=== PATIENT | female | born 1985 | race Caucasian/White ===

== ENCOUNTER 2019-10-26 09:32 | Outpatient (CLI) | payer SELFPAY ==
--- NOTE | 2019-10-26 09:38 | US_ITS ---
WS: [id number] OB ultrasound, 10/26/2019 Clinical Data: ANATOMY CHECK/2ND TRIMESTER NORMAL Comparison: None. Findings: There is a single intrauterine in an oblique lie. The placenta is posterior and fundal and grade 0. There is a normal amount of amnionic fluid. The heart rate is 141 beats per minute. Measurements of growth and development: BPD: 4.8 cm HC: 18.3 cm AC: 15.4 cm FL: 3.4 cm The estimated weight is 369 or approximately 13 ounces. The estimated gestational age is 20w5d with an KATHIE of approximately 03/09/2020. anatomy show a normal stomach, kidneys, bladder, cord insertion, three-vessel cord, entire spin e, four-chamber heart, lateral cerebral ventricles, cerebellum and cisterna magna. US/US OB >= 14 weeks fetus [id number] Impression: 1. Single intrauterine in an oblique lie. 2. Estimated gestational age 20w5d with an KATHIE of 03/09/2020. 3. heart rate 141 beats per minute.
== END 2019-10-26 09:33 | disposition home or self-care (01) ==
LOC: RAD 09:34
PROVIDERS: Family Provider Family Medicine; PCP Family Medicine; Visit Provider Family Medicine
DX: Z34.82 Encounter for supervision of other normal pregnancy, second trimester (principal); Z36.9 Encounter for antenatal screening, unspecified; Z3A.20 20 weeks gestation of pregnancy
CPT/HCPCS: 76805

== ENCOUNTER 2020-03-05 19:49 | Outpatient (CLI) | payer SELFPAY ==
[2020-03-05 20:08] VITALS: BP 147/72; PULSE 73
[2020-03-05 20:10] VITALS: BMI 26.3
[2020-03-05 20:18] VITALS: BP 0/0
[2020-03-05 20:20] VITALS: BP 146/71; PULSE 77
[2020-03-05 20:41] VITALS: BP 133/59; PULSE 66; TEMP 37.1
[2020-03-05 20:54] LABS: Nitrazine Paper, PH Inconclusive
[2020-03-05 20:58] LABS: Actim Prom Negative
[2020-03-05 21:01] VITALS: BP 138/62; PULSE 71
[2020-03-05 21:20] VITALS: BP 0/0
== END 2020-03-05 21:30 | disposition home or self-care (01) ==
LOC: OPOB 19:50 → OBGYN 21:25
PROVIDERS: PCP Family Medicine; Visit Provider Family Medicine
DX: O26.899 Other specified pregnancy related conditions, unspecified trimester (principal); Z3A.00 Weeks of gestation of pregnancy not specified; N89.8 Other specified noninflammatory disorders of vagina
CPT/HCPCS: 83986; 84112; 99211

== ENCOUNTER 2020-03-16 00:55 | Inpatient (IN) | payer SELFPAY ==
[2020-03-16] VITALS (13 sets, daily range): BP systolic 108–144; BP diastolic 52–80; PULSE 66–100; RESP 16–18; TEMP 36.7–36.9; O2SAT 96; BMI 25.3
--- NOTE | 2020-03-16 01:30 | PC.NURSE ---
Dr. Stephenson at bedside
[2020-03-16 01:34] LABS: Basophils % 0.2 %; Eosinophils # 0.1 10^3/uL (0.0-0.8); Eosinophils % 0.7 %; Hemoglobin 12.5 g/dL (11.5-15.3); Lymphocytes % 15.8 %; Mean Corpuscular HGB Conc 33.8 g/dL (30.0-36.0); Mean Corpuscular Hemoglobin 29.1 pg (28.0-34.0); Mean Corpuscular Volume 86.2 fL (81-99); Mean Platelet Volume 11.8 fL (7.4-10.4); Monocytes # 0.6 10^3/uL (0.2-0.9); Monocytes % 4.8 %; Neutrophils # 9.6 10^3/uL (1.8-7.7); Nucleated Red Blood Cells % 0 %; Platelet Count 199 10^3/cmm (130-400); Red Blood Count 4.29 10^6/uL (4.1-5.3); Red Cell Distribution Width 12.9 % (12.1-15.1); White Blood Count 12.4 10^3/uL (4.0-10.0)
--- NOTE | 2020-03-16 01:40 | P.HP_ITS ---
Providers/Chief Complaint Primary Care Provider: Jean Soot MD Chief Complaint: CONTRACTIONS HPI PHYSICAL ANTHROPOLOGIST History of Present Illness Meghan Cowart is a 35 year old 6 para 4-0-1-4 with an EDC of 03/12/2020 as determined by sure last menstrual period of 06/06/2019 and confirmed by ultrasound. She presents at 40-4/7 weeks gestation with onset of contractions on 03/14/2020 in the evening. They have increased in frequency and intensity all throughout the day yesterday and then she proceeded to the labor room this morning. She reports no leakage of fluid and no bleeding. care began in September at 15 weeks gestation and has been complicated by advanced maternal age and anemia which has been resolved with dietary supplementation. She has had her membranes swept in the office both 03/07/2020 and 03/14/2020. Present Details : 6 Para: 4 Date of Last Menstrual Period: 06/06/19 Calculated Date of Delivery: 03/12/20 Gestational Age Based on Last Menstrual Period: 40 Dating criteria OB: LMP confirmed by 2nd trimester US care: good care Ultrasounds: normal mid trimester US Obstetrical complications: other (Advanced maternal age) Medical complications OB: other (Anemia, rubella nonimmune status) Labs Blood type OB HPI: 0 (-) negative Rubella: Non-Immune RPR: Negative GBS: Negative HBsAG: Negative Other Lab Information: INITIAL LABS: Blood Type: O- D (Rh) Type: Negative Antibody Screen: Negative HCT/HB.7/39.1 Pap Test: Normal, high risk HPV negative Rubella: Nonimmune VDRL: Nonreactive Urine Culture/Screen: Negative HBsAg: Negative HIV Counseling/Testing: Negative Chlamydia: Declined GC: Declined MSAFP/Multiple Markers: Declined 24-30 WEEK LABS: HCT/HGB: 11.7 Diabetes Screen: 57 Tdap: Declined Group B Strep (35-37 weeks): Negative Review of Systems Const: Denies: fever(s) : Denies: vaginal bleeding or vaginal discharge Medications/Allergies Home Medications Medication Instructions Recorded Confirmed Last Taken Type [id number] acid 1 tab PO DAILY 03/16/20 03/16/20 03/15/20 History [ Multi] 0800 Allergies Allergy/AdvReac Type Severity Reaction Status Date / Time amoxicillin Allergy ALGY-Rash Verified 03/05/20 20:54 PFSH PHYSICAL ANTHROPOLOGIST 2 PFSH: Medical History (Updated 03/17/20 @ 09:00 by Mayda Stephenson MD) S/P ORIF (open reduction internal fixation) fracture left elbow/olecranon process Family History (Updated 03/16/20 @ 01:48 by Mayda Stephenson MD) Grandmother Cancer Breast Social History (Updated 03/16/20 @ 02:09 by Mayda Stephenson MD) Smoking and tobacco status: former smoker Second hand smoke exposure: No Alcohol intake: never Substance/Drug Use: never Adopted: No Caregiver/support person: Yes Lives independently: Yes Household members: spouse and children Marital status: Number of children: 4 Number of grandchildren: 0 Highest education level completed: Bachelor's Degree Other Female Reproductive History: Hx Age of Menarche: 12 Duration of menses: 3-5 days Date of Last Menstrual Period: 06/06/19 Cycle Length: 28 days Menstrual flow: normal/abnormal: normal Sexual History: Are you sexually active?: Yes Hx Sexually Transmitted Diseases: No Have you ever tested positive for HIV?: No History History History 6 Term 4 Miscarriages/Ectopic 1 0 Living Children 4 Past Pregnancies Del. Date GA/Weeks Outcome Route Wt Inf Gender Labor Lgth Comp. Anesth esia Location 08/20/99 7 spontaneous 05/11/10 39 live - full term Vaginal 6 lb 10 oz Male [facility] 06/24/12 39 live - full term Vaginal 6 lb 10 oz Male [facility] 06/29/14 40 live - full term Vaginal 7 lb 6 oz Female [facility] 04/27/17 40 live - full term Vaginal 7 lb 2 oz [facility] Delivery Date: 08/20/99 No complications Seema,Mayda Delivery Date: 05/11/10 No complications Seema,Mayda Delivery Date: 06/24/12 No complications Seema,Mayda Delivery Date: 06/29/14 No complications Seema,Mayda Delivery Date: 04/27/17 No complications Seema,Mayda Care KATHIE Calculator Estimated Delivery Date Method Current WG Current Estimate 03/12/20 LMP (Certain) 40w 5d Expected Delivery Route/Plan Vaginal/spontaneous labor Vitals/I&O/Wt Last Vital Signs Pulse 83 03/16/20 00:33 BP 135/75 03/16/20 00:33 Weight last 48 hrs Weight 5.538 oz Weight 157 lb Physical Exam Narrative: EXAM NARRATIVE: heart tones are category 1 with a normal baseline, moderate variability, many accelerations and no decelerations. Contractions are every 3 minutes and of moderate intensity. For complete physical examination please refer to her record. Const: COMMON NORMALS: no acute distress, patient oriented x3, no limitations, healthy appearing, alert and well nourished : MANUAL OB EXAM: dilated 5 cm, effaced (95%), station -2 and other (Vertex) AMNIOTIC FLUID: no fluid Psych: COMMON NORMALS: mental status grossly normal, Normal thought process present, cooperative, normal affect, speech normal and activity/motor behavior normal INSIGHT: Good insight present (Psych) JUDGEMENT: Good judgement present (Psych) Data : 03/16/20 18:25 A&P Assessment and plan (1) Spontaneous onset of labor: Patient is doing well and declines need for pain medication at this time. Status: Resolved (2) 40 weeks gestation of : Status: Resolved (3) Advanced maternal age in : She is declined genetic/aneuploidy testing Status: Resolved (4) Anemia affecting , antepartum: This is been treated with dietary supplementation Status: Resolved (5) Rubella non-immune status, antepartum: Patient is aware Status: Acute (6) Rh negative status during : Patient received RhoGam during the late second trimester of her Status: Acute Qualifiers: Trimester: third trimester Qualified Code(s): O26.893 - Other specified related conditions, third trimester; Z67.91 - Unspecified blood type, Rh negative Attestations Medical Necessity Statement*: As patient is spontaneously laboring she requires inpatient hospitalization. Time Spent in Patient Care: Greater than 35 minutes Coding Level of Care Code Acute Slag Worker for bryan Fwd Exam Expanded Problem Focused Diagnoses Spontaneous onset of labor 40 weeks gestation of Z3A.40 Advanced maternal age in Anemia affecting , antepartum O99.019 Rubella non-immune status, antepartum O99.89; Z28.3 Rh negative status during O26.893; Z67.91 Trimester: third trimester
--- NOTE | 2020-03-16 05:50 | PC.NURSE ---
5477 THIS COACH CLEANER TOOK OVER PATIENT CARE AND WENT IN AND ASK PATIENT AND IF I COULD PUT HER ON MONITOR FOR JUST A FEW MINUTES TO SEE WHAT BABY'S HEART BEAT WAS DOING WITH CONTRACTIONS, TOLD THEM THAT I WANTED TO LEAVE BABY ON WITH A CONTRACTION AND AFTER ITS OVER TO SEE IF BABY WAS OK, THEY AGREED AND WITH CONTRACTION HEART BEAT DROPPED INTO THE 60'S. THIS COACH CLEANER EXPLAINED THAT WAS NOT A GOOD THING AND ASKED IF THEY WERE GOOD WITH ME LEAVE MONITORS ON AND JUST TURNING VOLUME DOWN AND THEY WERE. THIS COACH CLEANER DID VE AND FELT THAT SHE WAS JUST 8CM. LIGHTS TURNED OFF AND TOLD THEM TO CALL IF THEY NEEDED ANYTHING.
--- NOTE | 2020-03-16 06:40 | P.PCNOB_ITS ---
Delivery Note: Date of delivery: March 16, 2020 Pre-Delivery Course: Patient arrived in the analog circuit designer hours monica with increasing frequency and intensity since the evening of 03/14/2020. When she initially arrived in the OB department she was 5 cm dilated 95% effaced and -2 station and monica regularly. She gradually dilated throughout the analog circuit designer hours and experienced spontaneous rupture of membranes at 5:15 AM. This was productive of a moderate amount of clear fluid. She was then found to be completely dilated at 6:10 AM. Throughout her labor she requested minimal intervention which included electronic monitoring. She also declined any type of pain medication. Delivery: After a 9-minute active portion of the second stage of labor she delivered a viable male at 6:19 AM. Head was straight OA. There was no nuchal cord. Bulb suctioning was done upon delivery of baby's head and of baby's body. Baby was placed on maternal abdomen with maternal effort, and the cord was clamped by myself after a delay of about 60 seconds. Cord was cut by father the baby, and cord blood was obtained. Gentle traction was placed on the cord and intravenous Pitocin was given in routine doses. The placenta delivered uneventfully at 6:27 AM and appeared to be intact and mature. Perineum and cervix were inspected and were found to be intact. Post-Delivery Status: Estimated blood loss 100 mL. Mother and baby are stable. Baby had Apgars of 9 at 1 minute and 9 at 5 minutes and weighed 6 pounds 10 ounces and was 21-1/2 inches in length. A&P Assessment and plan (1) Spontaneous onset of labor: Status: Acute (2) 40 weeks gestation of : Status: Acute (3) Advanced maternal age in : Status: Acute (4) Anemia affecting , antepartum: Status: Acute (5) Rubella non-immune status, antepartum: Status: Acute (6) Rh negative status during : Cord blood was obtained for cord blood profile to determine need for RhoGam Status: Acute Qualifiers: Trimester: third trimester Qualified Code(s): O26.893 - Other specified related conditions, third trimester; Z67.91 - Unspecified blood type, Rh negative (7) (normal spontaneous vaginal delivery): Routine orders Status: Acute (8) Intact perineum: Status: Acute Coding Level of Care Code Acute Air Support Operations Operator for Chg Fwd Diagnoses Spontaneous onset of labor 40 weeks gestation of Z3A.40 Advanced maternal age in Anemia affecting , antepartum O99.019 Rubella non-immune status, antepartum O99.89; Z28.3 Rh negative status during O26.893; Z67.91 Trimester: third trimester (normal spontaneous vaginal delivery) O80 Intact perineum
[2020-03-16] MEDS: lanolin oint 7 gm 1 APPLIC TOPICAL (09:09)
[2020-03-16] MEDS: prenatal vitamin Capsule 1 CAP PO (09:09)
[2020-03-16] MEDS: docusate sodium 100 mg Capsule PO (09:10)
--- NOTE | 2020-03-16 10:58 | PC.NURSE ---
PT REQUESTED THAT THEY NOT BE DISTURBED IF THEY WERE SLEEPING.
--- NOTE | 2020-03-16 10:59 | PC.NURSE ---
1030 PT SLEEPING, DID NOT DISTURB HER PER HER REQUEST EARLIER.
[2020-03-16 18:44] LABS: Hematocrit 36.2 % (37.0-47.0); Hemoglobin 12.1 g/dL (11.5-15.3); Mean Corpuscular HGB Conc 33.4 g/dL (30.0-36.0); Mean Corpuscular Hemoglobin 29.1 pg (28.0-34.0); Mean Platelet Volume 11.7 fL (7.4-10.4); Platelet Count 180 10^3/cmm (130-400); Red Blood Count 4.16 10^6/uL (4.1-5.3); Red Cell Distribution Width 13.2 % (12.1-15.1); White Blood Count 14.1 10^3/uL (4.0-10.0)
--- NOTE | 2020-03-16 21:28 | PC.NURSE ---
Pt. declined uterine massage.
[2020-03-17 06:00] VITALS: BP 117/70; PULSE 52; RESP 16; TEMP 36.8; O2SAT 97
--- NOTE | 2020-03-17 08:14 | P.DS_ITS ---
Discharge Providers GREEN MARKETER Date of Admission: 03/16/20 00:55 Date of Discharge: 03/17/20 Attending Provider at Admission: Mayda Stephenson MD Attending Provider at Discharge: Mayda Stephenson MD Primary Care Provider: Jean Soto MD Diagnoses at Discharge Discharge Diagnosis (1) Spontaneous onset of labor: Status: Resolved (2) 40 weeks gestation of : Status: Resolved (3) Advanced maternal age in : Status: Resolved (4) Anemia affecting , antepartum: Status: Resolved (5) Rubella non-immune status, antepartum: Status: Acute (6) Rh negative status during : Status: Acute Qualifiers: Trimester: third trimester Qualified Code(s): O26.893 - Other specified related conditions, third trimester; Z67.91 - Unspecified blood type, Rh negative (7) Rubella nonimmune status, delivered, current hospitalization: Status: Acute (8) Intact perineum: Status: Acute (9) (normal spontaneous vaginal delivery): Status: Acute Reason for Visit Reason for Visit: CONTRACTIONS Hospital Course Hospital Course: Patient arrived the supervisor hot dip tinning hours of 03/16/2020 monica with increasing frequency and intensity at 40-4/7 weeks gestation. Upon her arrival she was 5 cm dilated 95% effaced and -2 station. She declined any form of analgesia/anesthesia. She continued to dilate and experienced spontaneous rupture of membranes approximately an hour prior to her delivery. She had requested low intervention including electronic monitoring and was aware of the risks of doing so. After a very brief active portion of the second stage she delivered a viable male infant weighing 6 pounds 10 ounces with Apgars of 9 at 1 minute and 9 at 5 minutes. Her placenta delivered uneventfully, and she had an intact perineum. She had minimal blood loss. Discharge Summary: day 1 she is feeling good, just a little bit tired. She says that her cramping is manageable and is mostly with breast- feeding and that her bleeding is tapering down and is nothing unusual for this point in time. She is considering her options for contraception and will know more at her visit. We discussed the various different types of contraception, routes of administration and reversibility status. We also discussed the importance of maintaining immunity to rubella as we have seen a resurgence of measles. She declines the rubella booster. We also note that baby had a B- blood type, therefore RhoGam administration is unnecessary. She declines need for anything at home medication [place] and will take vitamins as long as she is breast-feeding. She feels that breast- feeding is going well and has no concerns about baby. Information Peripartum Data: Infant Delivery Method: Vaginal Laceration description: None Episiotomy description: None complications: none Physical Exam Const: COMMON NORMALS: no acute distress, patient oriented x3, no limitations, healthy appearing, alert and well nourished Neck/C-Spine: COMMON NORMALS: no JVD Resp: COMMON NORMALS: normal respiratory effort, No retractions, No use of accessory muscles and clear to auscultation bilaterally AUSCULTATION: clear to auscultation bilaterally Cardio: COMMON NORMALS: no JVD, regular rate, regular rhythm, S1 normal heart sound present, S2 normal heart sound present, No gallops present (Cardio), No clicks present (Cardio), No murmurs present (Cardio), No rub (Cardio) and Peripheral pulses 2+ throughout RATE: regular rate RHYTHM: regular rhythm HEART SOUNDS: S1 normal heart sound present and S2 normal heart sound present PERIPHERAL PULSES: Peripheral pulses 2+ throughout : UTERUS PALPATION: Yes Other OB uterine findings (Fundus firm, deep and 2 fingerbreadths below the umbilicus) Neuro: COMMON NORMALS: patient oriented x3 SENSORIUM/ORIENTATION: Yes alert Psych: COMMON NORMALS: mental status grossly normal, Normal thought process present, cooperative, normal affect, speech normal and activity/motor behavior normal SPEECH: Yes normal speech THOUGHT PROCESS: Normal thought process present Discharge Data Data Completed and Pending: Labs from last 24 hours 03/16/20 18:25 WBC 14.1 H RBC 4.16 Hgb 12.1 Hct 36.2 L MCV 87.0 MCH 29.1 MCHC 33.4 RDW 13.2 Plt Count 180 MPV 11.7 H Vitals: Last Vital Signs Temp 98.2 F 03/17/20 06:00 Pulse 52 L 03/17/20 06:00 Resp 16 03/17/20 06:00 BP 117/70 03/17/20 06:00 Pulse Ox 97 03/17/20 06:00 Discharge Plan Discharge Patient Disposition: Home, Self-Care Condition: Stable Prescriptions: Continued Multi 27-800 mg-mcg Tablet 1 tab PO DAILY RF: 0 Discharge Orders: Discharge Order (Routine); Ordered 03/17/20 Ordered By: Mayda Stephenson Referrals: Mayda Stephenson MD [Hospitalist] - 6 Weeks (Please call to schedule visit with either myself at 5 weeks if insurance allows or with Celine or Irene in our office at 6 weeks.) Discharge Diet: Usual diet Discharge Activity: Limit activity as instructed Discharge Attestations GREEN MARKETER Time Spent in Discharge Care*: less than 30 min Specific Discharge Activities: Specific discharge activities: educating patient, documenting/other paperwork and evaluating patient/reviewing data Status at Discharge: Cognitive status at discharge: cognitively intact , Behavioral status at discharge: cooperative , Functional status at discharge: independent ambulation Overall status at discharge: patient is progressing back to baseline Coding Level of Care Code Acute Hot Punch Press Operator for [facility] Fwd Exam Detailed Diagnoses Spontaneous onset of labor 40 weeks gestation of Z3A.40 Advanced maternal age in Anemia affecting , antepartum O99.019 Rubella non-immune status, antepartum O99.89; Z28.3 Rh negative status during O26.893; Z67.91 Trimester: third trimester Rubella nonimmune status, delivered, current hospitalization O99.89; Z28.3 Intact perineum (normal spontaneous vaginal delivery) O80
[2020-03-17] MEDS: prenatal vitamin Capsule 1 CAP PO (09:40)
[2020-03-17] MEDS: docusate sodium 100 mg Capsule PO (09:41)
[2020-03-17 09:46] VITALS: BP 120/72; PULSE 62; RESP 16; TEMP 36.8
[2020-03-17 10:53] VITALS: BP 120/72; PULSE 62; RESP 16; TEMP 36.8
== END 2020-03-17 11:20 | disposition home or self-care (01) | DRG 807 ==
LOC: OPOB 11:20 → OBGYN 11:20
PROVIDERS: Admitting Provider Family Medicine; PCP Family Medicine; Visit Provider Family Medicine
DX: O99.02 Anemia complicating childbirth (principal); Z37.0 Single live birth; D64.9 Anemia, unspecified; Z3A.40 40 weeks gestation of pregnancy
CPT/HCPCS: 12345; 36415; 59025; 59409; 85025; 85027; 99211

== ENCOUNTER 2020-08-06 08:02 | Outpatient (CLI) | payer SELFPAY ==
--- NOTE | 2020-08-06 08:13 | US_ITS ---
WS: [id number] ULTRASOUND RIGHT BREAST HISTORY: DISORDER/RIGHT BREAST PAIN COMPARISON: None available. TECHNIQUE: 2-D and Doppler. Tubular branching dilated ducts extend toward the nipple within a near circumferential distribution. Dilated ducts measuring up to 5.8 mm. There is mobile debris within the ducts noted. There are no mas ses or increased vascularity. No adenopathy. US/US breast RT limited* [id number] IMPRESSION: BI-RADS: 2-Benign FOLLOW-UP: Age 39 Marked duct ectasia. Dilated ducts with mobile debris probably related to breas t-feeding and tubular mastitis. No masses are identified.
== END 2020-08-06 08:03 | disposition home or self-care (01) ==
LOC: RAD 08:04
PROVIDERS: PCP Family Medicine; Visit Provider Nurse Practitioner Family
DX: N60.41 Mammary duct ectasia of right breast (principal)
CPT/HCPCS: 76642

== ENCOUNTER → 2021-04-02 11:21 | Outpatient (BNVA) | payer SELFPAY | PROVIDERS: PCP Family Medicine; Visit Provider Family Medicine | DX: L29.8 Other pruritus (principal); Z86.19 Personal history of other infectious and parasitic diseases | CPT/HCPCS: 80053; 80061; 85025 ==

== ENCOUNTER → 2021-04-09 10:52 | Outpatient (BNVA) | payer SELFPAY | PROVIDERS: PCP Family Medicine; Visit Provider Family Medicine | DX: L29.8 Other pruritus (principal); Z86.19 Personal history of other infectious and parasitic diseases | CPT/HCPCS: 87506 ==

== ENCOUNTER 2022-08-30 10:05 | Emergency (ER) | payer SELFPAY ==
[2022-08-30 10:15] VITALS: BP 122/68; PULSE 96; RESP 16; TEMP 36.7; O2SAT 97; BMI 21.4
--- NOTE | 2022-08-30 11:08 | W.ED.PREGNAN ---
HPI - General: Chief complaint: Vaginal Bleeding Stated complaint: 11 weeks , vaginal bleeding Time Seen by Provider: 08/30/22 11:01 Source: patient Mode of arrival: ambulatory Limitations: no limitations History of Present Illness: Patient reports that she is 11/2 weeks and started having mild vaginal bleeding and mild suprapubic abdominal cramping 2 days ago. Patient continues have mild vaginal bleeding now. Patient states she is 6P3 and blood type is O-. She states she had her first OB appointment recently but just had labs drawn and no exam or ultrasound was done at that time. She has received RhoGAM in the past. Associated symptoms: Deny dysuria, headache(s), nausea or vomiting Review of Systems Const: Denies: fever(s) or chills Eyes: Denies: change in vision ENMT: Denies: throat pain Card: Denies: chest pain or palpitations Resp: Denies: dyspnea or wheezing GI: Denies: nausea or vomiting : Reports: vaginal bleeding; Denies: flank pain or dysuria Musc: Denies: neck pain or back pain Skin/Breast: Denies: rash or pruritus Neuro: Denies: headache(s) or numbness in extremities Psych: Denies: anxiety Holger/Lymph: Denies: enlarged lymph nodes PFSH ED PFSH: Surgical History S/P ORIF (open reduction internal fixation) fracture left elbow/olecranon process Family History Grandmother Cancer Breast Social History Smoking and tobacco status: never smoked Second hand smoke exposure: No Alcohol intake: never Adopted: No Caregiver/support person: Yes Lives independently: Yes Household members: spouse and children Marital status: Number of children: 4 Number of grandchildren: 0 Highest education level completed: Bachelor's Degree Supplemental PFSH Information: Patient states she is 11 and half weeks Physical Exam Const: COMMON NORMALS: no acute distress, patient oriented x3, no limitations and well nourished GENERAL APPEARANCE: cooperative HENMT: COMMON NORMALS: normocephalic and atraumatic HEAD & SCALP: normocephalic and atraumatic FACE & SINUS: normal facial exam Eye: OTHER: No scleral icterus Neck/C-Spine: COMMON NORMALS: full ROM, no lymphadenopathy, supple and no meningeal signs GENERAL: Yes normal visual inspection Lymph: LYMPHATIC: no lymphadenopathy noted Chest: COMMONS NORMALS: normal inspection of the chest and normal palpation of entire chest wall CHEST: No Ecchymosis present and No rash Resp: COMMON NORMALS: normal respiratory effort, No retractions and clear to auscultation bilaterally EFFORT & INSPECTION: No respiratory distress AUSCULTATION: clear to auscultation bilaterally Cardio: COMMON NORMALS: regular rate, regular rhythm and Peripheral pulses 2+ throughout JUGULAR VENOUS DISTENTION: no JVD RATE: regular rate RHYTHM: regular rhythm PERIPHERAL PULSES: Peripheral pulses 2+ throughout GI: COMMON NORMALS: Normal to inspection, nondistended, normoactive bowel sounds present and non-tender Back/Pelvis: OTHER: No back pain Extremity: COMMON NORMALS: normal to inspection, full ROM and capillary refill normal Neuro: COMMON NORMALS: patient oriented x3, CN's II-XII intact bilaterally, no focal motor deficits and no sensory deficits noted MENINGEAL SIGNS: Yes no meningeal signs OTHER: Reflexes are normal bilaterally. Psych: COMMON NORMALS: mental status grossly normal and Normal thought process present THOUGHT PROCESS: Normal thought process present Skin: COMMON NORMALS: no rashes or lesions noted and no wounds GENERAL SKIN EXAM: no rashes or lesions noted Course Vital Signs: Vital signs: Vital Signs Temperature 98.1 F 08/30/22 14:00 Pulse Rate 65 08/30/22 14:48 Respiratory Rate 16 08/30/22 14:48 Blood Pressure 122/75 08/30/22 14:48 Pulse Oximetry 97 08/30/22 14:48 Oxygen Delivery Me thod 08/30/22 10:15 MDM - OB/Uterine Contractions Medical Decision Making Vaginal bleeding in first trimester . Possible threatened miscarriage Patient has a positive test. Patient with documented O- blood type by previous OB history and physical. Will give RhoGAM injection here today. We will also get OB ultrasound to rule out ectopic versus spontaneous miscarriage. Lab Data Urinalysis is a clean-catch. Patient having vaginal bleeding. No evidence of infection. 08/30/22 11:11 08/30/22 11:11 Radiology Impressions Obstetrics Ultrasound 08/30/22 11:40 IMPRESSION: pole with no heart tones and products of conception in the endometrial canal and cervix consistent with spontaneous . Laboratory Results WBC 7.5 10^3/uL (4.0-10.0) 08/30/22 11:11 RBC 5.11 10^6/uL (4.1-5.3) 08/30/22 11:11 Hgb 14.7 g/dL (11.5-15.3) 08/30/22 11:11 Hct 43.6 % (37.0-47.0) 08/30/22 11:11 MCV 85.3 fl (81-99) 08/30/22 11:11 MCH 28.8 pg (28.0-34.0) 08/30/22 11:11 MCHC 33.7 g/dL (30.0-36.0) 08/30/22 11:11 RDW 11.9 % (12.1-15.1) L 08/30/22 11:11 Plt Count 226 10^3/cmm (130-400) 08/30/22 11:11 MPV 9.9 fL (7.4-10.4) 08/30/22 11:11 Neut % (Auto) 62.9 % 08/30/22 11:11 Lymph % (Auto) 27.5 % 08/30/22 11:11 [place] % (Auto) 5.1 % 08/30/22 11:11 Eos % (Auto) 3.5 % 08/30/22 11:11 Baso % (Auto) 0.7 % 08/30/22 11:11 Neut # (Auto) 4.74 10^3/uL (1.8-7.7) 08/30/22 11:11 Lymph # (Auto) 2.1 10^3/uL (0.8-4.8) 08/30/22 11:11 [place] # (Auto) 0.4 10^3/uL (0.2-0.9) 08/30/22 11:11 Eos # (Auto) 0.3 10^3/uL (0.0-0.8) 08/30/22 11:11 Baso # (Auto) 0.1 10^3/uL (0.0-0.1) 08/30/22 11:11 Nucleated RBC % (auto) 0 % 08/30/22 11:11 Nucleated RBCs # 0.0 /100WBC 08/30/22 11:11 Sodium 131 mmol/L (136-145) L 08/30/22 11:11 Potassium 3.5 mmol/L (3.5-5.1) 08/30/22 11:11 Chloride 97 mmol/L (98-107) L 08/30/22 11:11 Carbon Dioxide 25 mmol/L (22-29) 08/30/22 11:11 Anion Gap 12.5 (5-19) 08/30/22 11:11 BUN 11 mg/dL (6-20) 08/30/22 11:11 Creatinine 0.6 mg/dL (0.5-0.9) 08/30/22 11:11 GFR Calculation 111.9 mL/min (90-130) 08/30/22 11:11 Glucose 73 mg/dL (65-115) 08/30/22 11:11 Calculated Osmolality 270 mOsm/kg (285-295) L 08/30/22 11:11 Calcium 9.7 mg/dL (8.5-10.5) 08/30/22 11:11 Total Bilirubin 0.4 mg/dL (0.15-1.2) 08/30/22 11:11 AST 13 U/L (0-32) 08/30/22 11:11 ALT 9 U/L (0-33) 08/30/22 11:11 Alkaline Phosphatase 75 U/L (35-105) 08/30/22 11:11 Total Protein 7.7 g/dL (6.6-8.7) 08/30/22 11:11 Albumin 4.4 g/dL (3.5-5.2) 08/30/22 11:11 Globulin 3.3 g/dL (1.3-4.6) 08/30/22 11:11 HCG, Qual Positive (Negative) H 08/30/22 11:11 Ser , Semi-Qnt 9035.00 mIU/mL 08/30/22 11:11 Urine Color Yellow (Yellow) 08/30/22 11:11 Urine Appearance Cloudy (CLEAR) A 08/30/22 11:11 Urine pH 5 (5-7) 08/30/22 11:11 Ur Specific [place] 1.025 (1.005-1.030) 08/30/22 11:11 Urine Protein Neg (Negative) 08/30/22 11:11 Urine Glucose (UA) Norm (Normal) 08/30/22 11:11 Urine Ketones 1+ (Negative) H 08/30/22 11:11 Urine Blood 3+ (Negative) H 08/30/22 11:11 Urine Nitrate Negative (Negative) 08/30/22 11:11 Urine Bilirubin Neg (Negative) 08/30/22 11:11 Urine Urobilinogen Norm mg/dL (Negative) 08/30/22 11:11 Ur Leukocyte Esterase Negative (Negative) 08/30/22 11:11 Urine RBC 25-40 /hpf (0-2) H 08/30/22 11:11 Urine WBC 0-4 /hpf (0-5) H 08/30/22 11:11 Ur Squamous Epith Cells 0-4 /hpf (0-5) H 08/30/22 11:11 Amorphous Sediment Not Reportable 08/30/22 11:11 Urine Bacteria Trace /hpf (NONE) 08/30/22 11:11 Urine Mucus 1+ /hpf 08/30/22 11:11 Blood Type O Negative 08/30/22 12:00 Rho(D) Type Negative 08/30/22 12:00 Antibody Screen Negative 08/30/22 12:00 Imaging Data US: Radiologist's impression: PROCEDURE INFORMATION: Exam: US , Limited Exam date and time: 08/30/2022 1:23 PM Age: 37 years old Clinical indication: complicated by abdominal or pelvic pain; Lower; First trimester (<14 weeks 0 days); Gestational age or lmp: 11w6d; ; Additional info: Vaginal bleeding pelvic pain, report of 11.5 weeks ; R/O ectopic vs sab LABS AND CLINICAL REPORTS: Serum Choriogonadotropin (HCG): 900 mIU/mL Last menstrual period start date: 06/08/2022 Gestational age (Established): 11 w 6 d Estimated due date (Established): 03/15/2023 TECHNIQUE: Imaging protocol: Real-time ultrasound of the maternal uterus with image documentation. Exam focused on the clinical indication. COMPARISON: US OB >= 14 weeks fetus [id number] 10/26/2019 9:53 AM FINDINGS: Gestation: pole noted with no heart tones. Fluid-filled endometrial canal and cervix consistent with spontaneous . MATERNAL: Uterus: Uterus measures 10.9 cm x 7.4 cm x 6.9 cm. Cervix: Cervical length measures 2.7 cm. US/ OB limited [id number] IMPRESSION: pole with no heart tones and products of conception in the endometrial canal and cervix consistent with spontaneous . ? Dictated By: Russell Kim DO Signed By: Russell Kim DO Signed Date/Time: 08/30/22 1520 Discharge Plan Discharge Patient Disposition: Home Clinical Impression: Incomplete , Spontaneous at 8 to 28 weeks gestation Condition: Stable Prescriptions: No Action permethrin [Elimite] 5 % cream 1 applic topical Q7D Qty: 60 2RF Rx Instructions: apply second treatment 7 days after first treatment hydroxyzine HCl 10 mg tablet 10 mg PO TID PRN (Reason: itching) Qty: 30 3RF Discharge Orders: Discharge ED (Routine); Ordered 08/30/22 Ordered By: Juancarlos Russell Referrals: Jean Soto MD [Primary Care Provider] - 1-3 days Discharge Activity: Resume usual activity Patient Instructions: Miscarriage (ED), Opioid Safety, Pain Management Activity Restrictions/Additional Instructions: You will likely continue having bleeding due to your miscarriage. Follow-up with your OB doctor early this week for recheck and repeat blood test for quantitative beta-hCG. No intervention at this time. Rest. Drink plenty fluids. May take Tylenol or ibuprofen as needed for discomfort. You were given RhoGAM injection in the ER today. Coding Level of Care Code ED Data Warehouse Architect for Chg Fwd History Comprehensive Exam Comprehensive Medical Decision Making Moderate Complexity
[2022-08-30 11:23] LABS: Basophils # 0.1 10^3/uL (0.0-0.1); Basophils % 0.7 %; Eosinophils # 0.3 10^3/uL (0.0-0.8); Eosinophils % 3.5 %; Hematocrit 43.6 % (37.0-47.0); Hemoglobin 14.7 g/dL (11.5-15.3); Lymphocytes # 2.1 10^3/uL (0.8-4.8); Lymphocytes % 27.5 %; Mean Corpuscular HGB Conc 33.7 g/dL (30.0-36.0); Mean Corpuscular Hemoglobin 28.8 pg (28.0-34.0); Mean Corpuscular Volume 85.3 fl (81-99); Mean Platelet Volume 9.9 fL (7.4-10.4); Monocytes # 0.4 10^3/uL (0.2-0.9); Monocytes % 5.1 %; Neutrophils # 4.74 10^3/uL (1.8-7.7); Neutrophils % 62.9 %; Nucleated Red Blood Cells % 0 %; Platelet Count 226 10^3/cmm (130-400); Red Blood Count 5.11 10^6/uL (4.1-5.3); Red Cell Distribution Width 11.9 % (12.1-15.1); White Blood Count 7.5 10^3/uL (4.0-10.0)
[2022-08-30 11:24] LABS: HCG Qualitative Urine. Positive (Negative)
[2022-08-30 11:29] LABS: Add Urine Culture? Yes; Add Urine Microscopic? YES; Bacteria Urine TRACE /hpf; Bilirubin Urine Neg (Negative); Blood Urine 3+ (Negative); Glucose Urine UA Norm (Normal); Ketones Urine 1+ (Negative); Leukocyte Esterase Urine Negative (Negative); Mucus Urine 1+ /hpf; Nitrate Urine Negative (Negative); Protein Urine Neg (Negative); RBC Urine 25-40 /hpf (0-2); Specific Gravity, Urine 1.025 (1.005-1.030); Squamous Epithelial Cell Urine 0-4 /hpf (0-5); Urine Appearance Cloudy (CLEAR); Urine Color Yellow (Yellow); Urobilinogen Urine Norm (Negative); WBC Urine 0-4 /hpf (0-5); pH Urine 5 (5-7)
[2022-08-30 11:39] LABS: Alanine Aminotransferase 9 U/L (0-33); Albumin Level 4.4 g/dL (3.5-5.2); Alkaline Phosphatase 75 U/L (35-105); Anion Gap 12.5 (5-19); Aspartate Amino Transferase 13 U/L (0-32); Blood Urea Nitrogen 11 mg/dL (6-20); Calcium 9.7 mg/dL (8.5-10.5); Carbon Dioxide 25 mmol/L (22-29); Chloride 97 mmol/L (98-107); Globulin 3.3 g/dL (1.3-4.6); Glomerular Filtration Rate 111.9 mL/min (90-130); Glucose 73 mg/dL (65-115); Osmolality Calculated 270 mOsm/kg (285-295); Potassium 3.5 mmol/L (3.5-5.1); Sodium 131 mmol/L (136-145); Total Bilirubin 0.4 mg/dL (0.15-1.2); Total Protein 7.7 g/dL (6.6-8.7)
--- NOTE | 2022-08-30 11:40 | USR_ITS ---
PROCEDURE INFORMATION: Exam: US , Limited Exam date and time: 08/30/2022 1:23 PM Age: 37 years old Clinical indication: complicated by abdominal or pelvic pain; Lower; First trimester (<14 weeks 0 days); Gestational age or lmp: 11w6d; ; Additional info: Vaginal bleeding pelvic pain, report of 11.5 weeks ; R/O ectopic vs sab LABS AND CLINICAL REPORTS: Serum Choriogonadotropin (HCG): 900 mIU/mL Last menstrual period start date: 06/08/2022 Gestational age (Established): 11 w 6 d Estimated due date (Established): 03/15/2023 TECHNIQUE: Imaging protocol: Real-time ultrasound of the maternal uterus with image documentation. Exam focused on the clinical indication. COMPARISON: US OB >= 14 weeks fetus [id number] 10/26/2019 9:53 AM FINDINGS: Gestation: pole noted with no heart tones. Fluid-filled endometrial canal and cervix consistent with spontaneous . MATERNAL: Uterus: Uterus measures 10.9 cm x 7.4 cm x 6.9 cm. Cervix: Cervical length measures 2.7 cm. US/US OB limited [id number] IMPRESSION: pole with no heart tones and products of conception in the endometrial canal and cervix consistent with spontaneous .
[2022-08-30] MEDS: ondansetron 2 mg/ML SDV 2 mL 4 MG IVP (11:47)
[2022-08-30 14:00] VITALS: BP 111/63; PULSE 61; RESP 13; TEMP 36.7
[2022-08-30 14:48] VITALS: BP 122/75; PULSE 65; RESP 16; O2SAT 97
[2022-08-30 16:00] VITALS: BP 115/78; PULSE 84; RESP 16; O2SAT 97
[2022-08-30 16:38] VITALS: BP 115/93; PULSE 91; RESP 16; O2SAT 91
== END 2022-08-30 16:39 | disposition home or self-care (01) ==
PROVIDERS: Emergency Provider Family Medicine; PCP Family Medicine
DX: O03.4 Incomplete spontaneous abortion without complication (principal)
CPT/HCPCS: 36430; 76815; 80053; 81001; 81025; 84702; 85025; 86850; 86900; 87086; 90384; 96374; 99285; J2405

== ENCOUNTER → 2023-01-12 15:06 | Outpatient (BNVA) | payer MEDICAID, SELFPAY | PROVIDERS: PCP Family Medicine; Visit Provider Family Medicine | DX: L29.9 Pruritus, unspecified (principal) | CPT/HCPCS: 80048; 86618; 86666; 86757 ==

== ENCOUNTER → 2023-04-20 10:46 | Day surgery (SDC) | payer BC, MEDICAID, SELFPAY ==
[2023-04-19 10:32] VITALS: BMI 21.1
[2023-04-19 11:01] LABS: Add Urine Microscopic? NO; Charge for UA Resulting for Rev
[2023-04-19 11:11] LABS: Bilirubin Urine Neg (Negative); Blood Urine Neg (Negative); Glucose Urine UA Norm (Normal); Ketones Urine Negative (Negative); Leukocyte Esterase Urine Negative (Negative); Nitrate Urine Negative (Negative); OR HCG Qualitative Urine Negative (Negative); Protein Urine Neg (Negative); Urine Appearance Clear (CLEAR); Urine Color Yellow (Yellow); Urobilinogen Urine Norm (Negative); pH Urine 5 (5-7)
[2023-04-19 11:21] LABS: Basophils # 0.1 10^3/uL (0.0-0.1); Basophils % 1.2 %; Eosinophils # 0.1 10^3/uL (0.0-0.8); Hematocrit 41.4 % (37.0-47.0); Hemoglobin 13.7 g/dL (11.5-15.3); Lymphocytes # 1.7 10^3/uL (0.8-4.8); Lymphocytes % 30.6 %; Mean Corpuscular HGB Conc 33.1 g/dL (30.0-36.0); Mean Corpuscular Hemoglobin 28.1 pg (28.0-34.0); Mean Platelet Volume 10.3 fL (7.4-10.4); Monocytes # 0.3 10^3/uL (0.2-0.9); Monocytes % 4.8 %; Neutrophils # 3.44 10^3/uL (1.8-7.7); Neutrophils % 61.2 %; Nucleated Red Blood Cells % 0 %; Platelet Count 219 10^3/cmm (130-400); Red Blood Count 4.87 10^6/uL (4.1-5.3); Red Cell Distribution Width 12.4 % (12.1-15.1); White Blood Count 5.6 10^3/uL (4.0-10.0)
--- NOTE | 2023-04-19 11:27 | ANES.PREANE2 ---
Pre-Anesthetic Assessment Height/Weight: Height 1.68 m Weight 59.421 kg Operation Date: 04/20/23 12:20 Proposed Procedures p Laparoscopic bilateral salpingectomy 50343(Bilateral) - Loi Sherwood MD Familial anesthetic complications: none Was Beta Lien taken within 24 hours: N/A Was Clonidine taken within 24 hours: N/A Social No alcohol and No tobacco Exam alert, oriented x 3, clear to auscultation bilaterally and regular rate & rhythm Airway Submandibular: within normal limits Cervical ROM: within normal limits Mallampati: Class II Dentition: full History/ROS No significant history except as noted Anesthetic Plan ASA status: 1 Anesthesia: General Medications/Allergies Home Medications Medication Instructions Recorded Confirmed Last Taken Type No Known Home Medications 03/05/23 04/19/23 Unknown History Allergies Allergy/AdvReac Type Severity Reaction Status Date / Time amoxicillin Allergy ALGY-Rash Verified 04/19/23 09:14 [facility] Anesthesia Surgical History S/P ORIF (open reduction internal fixation) fracture left elbow/olecranon process Family History Grandmother Cancer Breast Denies family history of Colon cancer Pancreatic cancer Ovarian cancer Diabetes Hypertension Uterine cancer Thyroid disease Stroke Female Reproductive History Date of last menstrual period: 04/05/23 Data Anesthesia 04/19/23 11:04 04/19/23 11:04 Short CBC 04/19/23 Range/Units 11:04 WBC 5.6 (4.0-10.0) 10^3/uL Hgb 13.7 (11.5-15.3) g/dL Hct 41.4 (37.0-47.0) % MCV 85.0 (81-99) fl Plt Count 219 (130-400) 10^3/cmm Neut % (Auto) 61.2 % Neut # (Auto) 3.44 (1.8-7.7) 10^3/uL Urine 04/19/23 Range/Units 10:55 Urine Color Yellow (Yellow) Urine Appearance Clear (CLEAR) Urine pH 5 (5-7) Ur Specific [place] 1.020 (1.005-1.030) Urine Protein Neg (Negative) Urine Glucose (UA) Norm (Normal) Urine Ketones Negative (Negative) Urine Nitrate Negative (Negative) Urine Bilirubin Neg (Negative) Ur Leukocyte Esterase Negative (Negative) Cardiac Studies: Holter Monitor 12/04/20
[2023-04-19 11:46] LABS: Alanine Aminotransferase 7 U/L (0-33); Albumin Level 4.3 g/dL (3.5-5.2); Alkaline Phosphatase 71 U/L (35-105); Aspartate Amino Transferase 16 U/L (0-32); Blood Urea Nitrogen 10 mg/dL (6-20); Carbon Dioxide 24 mmol/L (22-29); Chloride 105 mmol/L (98-107); Globulin 2.9 g/dL (1.3-4.6); Glomerular Filtration Rate 79.9 mL/min (90-130); Glucose 80 mg/dL (65-115); Osmolality Calculated 286 mOsm/kg (285-295); Sodium 139 mmol/L (136-145); Total Bilirubin 0.3 mg/dL (0.15-1.2); Total Protein 7.2 g/dL (6.6-8.7)
[2023-04-20] VITALS (10 sets, daily range): BP systolic 104–136; BP diastolic 61–77; PULSE 40–85; RESP 16–20; TEMP 36.2–36.7; O2SAT 97–100
[2023-04-20 11:08] LABS: OR HCG Qualitative Urine Negative (Negative)
[2023-04-20] MEDS: sodium chloride 0.9% 500 ML IV (11:16)
[2023-04-20] MEDS: sodium chloride 0.9% 1,000 ML 30 ML IV (11:17)
--- NOTE | 2023-04-20 12:04 | P.ANESUD_ITS ---
Pre-Anesthetic Update Pre-Anesthetic Assessment: Date of Surgery/Procedure: 04/20/23 Preop Erika gnosis: desire permanent sterilization Proposed Procedure: Operation Date: 04/20/23 12:20 Proposed Procedures p Laparoscopic bilateral salpingectomy [id number](Bilateral) - Loi Sherwood MD Any changes to Pre-Anesthetic Assessment?: No Last Intake: Intake Last Liquid Date 04/19/23 Last Liquid Time 21:00 Last Solid Date 04/19/23 Last Solid Time 21:00 Labs Last 48hrs: Short CBC 04/19/23 Range/Units 11:04 WBC 5.6 (4.0-10.0) 10^3/ uL Hgb 13.7 (11.5-15.3) g/dL Hct 41.4 (37.0-47.0) % MCV 85.0 (81-99) fl Plt Count 219 (130-400) 10^3/c mm Neut % (Auto) 61.2 % Neut # (Auto) 3.44 (1.8-7.7) 10^3/u L BMP 04/19/23 11:04 Sodium 139 Potassium 4.0 Chloride 105 Carbon Dioxide 24 BUN 10 Creatinine 0.8 Glucose 80 Calcium 9.0 Liver Function 04/19/23 Range/Units 11:04 Total Bilirubin 0.3 (0.15-1.2) mg/dL AST 16 (0-32) U/L ALT 7 (0-33) U/L Alkaline Phosphata se 71 (35-105) U/L Albumin 4.3 (3.5-5.2) g/dL Urine 04/19/23 Range/Units 10:55 Urine Color Yellow (Yellow) Urine Appearance Clear (CLEAR) Urine pH 5 (5-7) Ur Specific [place] y 1.020 (1.005-1.030) Urine Protein Neg (Negative) Urine Glucose (UA) Norm (Normal) Urine Ketones Negative (Negative) Urine Nitrate Negative (Negative) Urine Bilirubin Neg (Negative) Ur Leukocyte [place] ase Negative (Negative) Blood Bank 04/19/23 11:04 Blood Type O Negative Rho(D) Type Negative Antibody Screen Negative Vitals: Temperature 98.0 F 04/20/23 11:01 Temperature Source Temporal Artery S can 04/20/23 11:01 Pulse Rate 65 04/20/23 11:01 Respiratory Rate 16 04/20/23 11:01 Blood Pressure 136/75 04/20/23 11:01 Blood Pressure Shari n 95 04/20/23 11:01 Pulse Oximetry 99 04/20/23 11:01 Oxygen Delivery Me thod Room Air 04/20/23 11:03 Exam: Pre-Anes Outpt Exam: alert, oriented x 3, clear to auscultation bilaterally and regular rate & rhythm Cardiac Studies: Holter Monitor 12/04/20
--- NOTE | 2023-04-20 13:26 | W.PM.OPSUD ---
Surgery/Procedure H&P Update DATE OF PROCEDURE: April 20, 2023 DATE H&P PERFORMED: 04/19/23 H&P UPDATE INFORMATION: I have reviewed H&P completed within last 30 days, I have examined patient prior to procedure and No changes to prior documentation PREOP DIAGNOSIS: desire permanent sterilization PLANNED PROCEDURE: Operation Date: 04/20/23 12:20 Proposed Procedures p Laparoscopic bilateral salpingectomy 38984(Bilateral) - Loi Sherwood MD
[2023-04-20] MEDS: diphenhydrAMINE 50 mg/mL SDV 1mL (13:48)
[2023-04-20] MEDS: midazolam 1 mg/mL INJ 2 mL 2 MG IVP (13:50)
[2023-04-20] MEDS: vancomycin 1,000 MG in sodium chloride 0.9% 250 ML 250 MG IV (13:54)
--- NOTE | 2023-04-20 14:52 | PM.OP ---
Operative Report Date of procedure: April 20, 2023 Pre-op diagnosis: Preop Diagnosis desire permanent sterilization Post-op diagnosis: same Post-op findings: Normal uterus, fallopian tubes and ovaries Procedure done: Laparoscopic bilateral salpingectomy Specimens removed/disposition: Left and right fallopian tube Surgeon: Loi Sherwood MD Estimated blood loss (mL): 10 IV fluids (mL): 700 Urine output (mL): 150 Procedure: After informed consent, the patient was taken to the operating room where general anesthesia was administered. She was placed in the dorsal lithotomy position and prepped and draped in sterile fashion. Pre-Procedure Time-Out verifying the correct patient identity, correct procedure verified with consent, correct site and side, correct patient position, availability of correct implants and any special equipment or requirements was performed and acknowledge by the OR team. The patient was examined under anesthesia and found to have a normal uterus with normal adnexa. A weighted speculum was placed in the vagina, and the anterior lip of cervix was grasped with the single toothed tenaculum. A uterine manipulator was advanced into the endocervical canal and uterus. The tenaculum was removed after uterine manipulator was secured. The speculum was removed from the vagina. An intraumbilical incision was made with a scalpel. While tenting up on the abdomen, a Verres needle was admitted into the intra-abdominal cavity. A saline drop test was performed and noted to be within normal limits. Pneumoperitoneum was attained with 4 liters of carbon dioxide. The Verres needle was removed. A 5 mm Opitc view trocar and sleeve were admitted into the abdomen and laparoscopic confirmation of location was achieved. A second incision was made 3 cm above the symphysis pubis, and a 5 mm trocar sleeves were admitted into the abdomen under direct laparoscopic visualization without complication. A survey revealed normal abdominal and pelvic anatomy . A 5 mm blunt probe was advanced through the second trocar sleeve, and light manipulation of ovaries and uterus to assess the posterior aspects was performed. The pelvic survey shows normal uterus, left and right adnexa. The patient was placed into Trendelenburg position. The fallopian tubes were inspected bilaterally and the fimbriated ends of the fallopian tubes were visualized bilaterally. Attention was then directed to the right side. The fallopian tube and mesosalpinx were grasped and the underlying mesosalpinx was cauterized and cut using the Ligasure device. Serial grasping, cauterization and cutting was used to separate the fallopian tube from the underlying mesosalpinx until it could be amputated cutting it approximated 2 cm from the cornua. Attention was then turned to the contralateral fallopian tube, which was removed in similar fashion. Both specimens were removed through the trocar and sent to pathology. The instruments were removed. The suprapubic trocar port was removed under direct visualization insuring good hemostasis. The carbon dioxide was allowed to escape from the abdomen. The intraumbilical trocar sleeve was withdrawn under visualization with laparoscope in the sleeve to insure hemostasis. The skin incisions were closed with 3-O Monocryl subcuticular stich and Dermabond. The instruments were removed from the vagina, and excellent hemostasis was noted. The patient tolerated the procedure well, and sponge, lap and needle count were correct times two. The patient was taken to the recovery room in good condition.
--- NOTE | 2023-04-20 15:07 | ANE.PACU2 ---
Inpatient post-anesthesia follow up: Airway intact: Yes Vital signs: Temperature 98.0 F Pulse Rate 65 Respiratory Rate 16 Blood Pressure 136/75 Pulse Oximetry 99 Oxygen Delivery Me thod Room Air Oxygen Flow Rate Fraction of Inspir ed Oxygen Hydration adequate: Yes Nausea and vomiting: No Pain level: 3 Mental status: Baseline
--- NOTE | 2023-04-20 15:59 | SUR.PHASEI ---
1525 Dr Son notified of pts low heart rate, dipping into the upper 30s at times. He stated that the patient had explained to him that she does have a low heart rate and has been seeing Dr Soto for that. Informed Dr Son that her blood pressure is WNL and that she is asymptomatic. Pt denied any dizziness at this time. Yisel Pad checked and has scant pink tinged fluid. Abdomen soft and no distention noted.
--- NOTE | 2023-04-20 16:38 | SUR.PHASEII ---
1638-Patient has history or low heart rate. No complaints on feeling light headed, no pain or nausea. Patient is dressed with no issues.
== END | disposition home or self-care (01) ==
PROVIDERS: Anesthesiology; PCP Family Medicine; Visit Provider Obstetrics & Gynecology
PROC: (CPT 58661; 2023-04-20 12:10)
DX: Z30.2 Encounter for sterilization (principal)
CPT/HCPCS: 58661; 36415; 80053; 81003; 81025; 84703; 85025; 86850; 86900; 88302; J1100; J1200; J2250; J2405; J2704; J2710; J3010; J3370; J3490; J7030; J7040; J7050

== ENCOUNTER 2024-01-08 06:24 | Emergency (ER) | payer BC, MEDICAID, SELFPAY ==
[2024-01-08 06:26] VITALS: BP 124/94; PULSE 86; RESP 20; TEMP 37; O2SAT 98; BMI 21.7
--- NOTE | 2024-01-08 06:53 | XRR_ITS ---
PROCEDURE INFORMATION: Exam: XR Chest Exam date and time: 01/08/2024 7:06 AM Age: 38 years old Clinical indication: Cough and dyspnea; Additional info: Dyspnea/cough TECHNIQUE: Imaging protocol: Radiologic exam of the chest. Views: 1 view. COMPARISON: No relevant prior studies available. FINDINGS: Lungs: Hyperinflation, without acute airspace disease. Pleural spaces: No pleural effusion. Heart/Mediastinum: Normal configuration of the heart. Bones/joints: Unremarkable. XR/XR chest 1V portable [id number] IMPRESSION: Hyperinflation, without acute airspace disease.
--- NOTE | 2024-01-08 06:54 | ED_ITS ---
HPI - Chest Pain 2 General: Chief Complaint: Chest Pain Stated Complaint: chest pains Time Seen by Provider: 01/08/24 06:27 Source: patient Mode of arrival: ambulatory History of Present Illness: 38-year-old female presents emergency ro om complaining of palpitations. She has had these in the past before. She woke up last night with several palpitations made her very uncomfortable they self terminated. They seemed more intense in the last longer than she has in the past. She states they seem to begin after she had COVID a few years ago. She not had any recent illness no fever sweats chills nausea vomiting or diarrhea. She does not drink a lot of caffeine yesterday she had drink 2 cups of coffee normally she only drinks 1. She did have a couple of adult beverages with her supper last night when she went out to eat with friends but states she had not drinking to excess. She has no history of any thyroid problems Onset (ago): hour(s) Timing of current episode: episodic Prior episodes: Yes Onset: during rest Pain radiation: none Severity: mild Relieving factors: nothing Exacerbating factors: nothing Associated symptoms: Deny abdominal pain, diaphoresis, dyspnea, fever(s), leg edema, nausea, palpitations, sense of impending doom, syncope, vomiting or other Review of Systems 2 Const: Denies: fever(s), chills or diaphoresis Card: Denies: chest pain, palpitations or syncope Resp: Denies: dyspnea GI: Denies: abdominal pain, nausea or vomiting : Denies: dysuria, urinary frequency or urinary urgency Musc: Denies: neck pain or back pain Skin/Breast: Denies: rash PFSH ED 2 PFSH: Medical History (Updated 01/08/24 @ 08:45 by Renny Cartagena DO) Psychiatric care Surgical History (Updated 01/08/24 @ 06:55 by Renny Cartagena DO) H/O tubal ligation S/P ORIF (open reduction internal fixation) fracture left elbow/olecranon process Family History Grandmother Cancer Breast Denies family history of Colon cancer Pancreatic cancer Ovarian cancer Diabetes Hypertension Uterine cancer Thyroid disease Stroke Physical Exam 2 Const: GENERAL APPEARANCE: cooperative and comfortable O RIENTATION/CONSCIOUSNESS: Yes awake, Yes oriented to person, Yes oriented to place and Yes oriented to time HENMT: COMMON NORMALS: normocephalic, atraumatic and hearing grossly normal bilaterally HEAD & SCALP: normocephalic and atraumatic Resp: COMMON NORMALS: normal respiratory effort, No retractions, No use of accessory muscles and clear to auscultation bilaterally AUSCULTATION: clear to auscultation bilaterally Cardio: COMMON NORMALS: regular rhythm and No murmurs present (Cardio) R ATE: bradycardic RHYTHM: regular rhythm GI: COMMON NORMALS: Soft to palpation and No hepatosplenomegaly present A USCULTATION: Yes normoactive bowel sounds PALPATION: Yes Soft to palpation, No Tenderness to palpation present (GI), No Guarding due to palpation present (GI) and Yes No hepatosplenomegaly present Extremity: COMMON NORMALS: normal to inspection, capillary refill normal, no clubbing, cyanosis or edema, no calf tenderness and no pedal edema Neuro: SENSORIUM/ORIENTATION: Yes oriented to person, Yes oriented to place and Yes oriented to time Skin: COMMON NORMALS: no rashes or lesions noted GENERAL SKIN EXAM: no rashes or lesions noted Course 2 Vital Signs: Vital signs: Vital Signs Temperature 98.6 F 01/08/24 06:26 Pulse Rate 50 L 01/08/24 08:30 Respiratory Rate 22 H 01/08/24 08:30 Blood Pressure 108/59 01/08/24 08:30 Pulse Oximetry 96 01/08/24 08:30 MDM - Chest Pain Medical Decision Making Labs and imaging are unremarkable. EKG shows normal sinus rhythm to sinus bradycardia and did see a couple of PACs while I was in the room talking to her initially she had 3-4 she was asymptomatic of this however. She seems to have some mild intrinsic bradycardia but she is asymptomatic of and her blood pressures are normal and she does exercise somewhat may just be from conditioning. Otherwise all of her evaluation is normal. She not really been having any chest pain is more palpitations that she was having. She obviously not tachycardic and her oxygen sats have been normal nothing to suggest PE. Chest x-ray did not show any pneumonia or pneumothorax. Discussed with her sometimes will treat PACs and PVCs with a low-dose beta-edinson but in her particular case I would not recommend that at this point, she is likely to get too bradycardic and then become more symptomatic from the meds and she was from the original issue. After long discussion with her we ultimately decided to go ahead and do another Holter monitor since the seem to be more intense than what she has had in the past. Discussed with her the difficulty sometimes there is of isolating arrhythmias in patients is also encouraged to follow-up with her primary care doctor. Medical Records I reviewed the patient's medical records. Lab Data I reviewed the patient's lab results. 01/08/24 06:34 01/08/24 06:34 Radiology Impressions Chest X-Ray 01/08/24 06:53 IMPRESSION: Hyperinflation, without acute airspace disease. Laboratory Results WBC 7.08 10^3/uL (3.29-11.43) 01/08/24 06:34 RBC 5.14 10^6/uL (3.85-5.65) 01/08/24 06:34 Hgb 14.80 g/dL (11.27-16.99) 01/08/24 06:34 Hct 44.2 % (36-47) 01/08/24 06:34 MCV 86.0 fl (85-98) 01/08/24 06:34 MCH 28.8 pg (27-33) 01/08/24 06:34 MCHC 33.5 g/dL (30-55) 01/08/24 06:34 RDW 12.6 % (12.1-15.1) 01/08/24 06:34 Plt Count 239 10^3/cmm (157-399) 01/08/24 06:34 MPV 10.6 fL (7.4-10.4) H 01/08/24 06:34 Neut % (Auto) 56.3 % 01/08/24 06:34 Lymph % (Auto) 34.0 % 01/08/24 06:34 Mccormick % (Auto) 5.2 % 01/08/24 06:34 Eos % (Auto) 3.1 % 01/08/24 06:34 Baso % (Auto) 1.3 % 01/08/24 06:34 Neut # (Auto) 3.98 10^3/uL (1.8-7.7) 01/08/24 06:34 Lymph # (Auto) 2.4 10^3/uL (0.8-4.8) 01/08/24 06:34 M[place]ormick # (Auto) 0.4 10^3/uL (0.2-0.9) 01/08/24 06:34 Eos # (Auto) 0.2 10^3/uL (0.0-0.8) 01/08/24 06:34 Baso # (Auto) 0.1 10^3/uL (0.0-0.1) 01/08/24 06:34 Nucleated RBC % (auto) 0 % 01/08/24 06:34 Nucleated RBCs # 0.0 /100WBC 01/08/24 06:34 Sodium 137 mmol/L (136-145) 01/08/24 06:34 Potassium 3.9 mmol/L (3.5-5.1) 01/08/24 06:34 Chloride 104 mmol/L (98-107) 01/08/24 06:34 Carbon Dioxide 25 mmol/L (22-29) 01/08/24 06:34 Anion Gap 11.9 (5-19) 01/08/24 06:34 BUN 12 mg/dL (6-20) 01/08/24 06:34 Creatinine 0.8 mg/dL (0.5-0.9) 01/08/24 06:34 GFR Calculation 79.9 mL/min (90-130) L 01/08/24 06:34 Glucose 92 mg/dL (65-115) 01/08/24 06:34 Calculated Osmolality 283 mOsm/kg (285-295) L 01/08/24 06:34 Calcium 9.3 mg/dL (8.5-10.5) 01/08/24 06:34 Magnesium 1.8 mg/dL (1.7-2.3) 01/08/24 06:34 Total Bilirubin 0.2 mg/dL (0.15-1.2) 01/08/24 06:34 AST 13 U/L (0-32) 01/08/24 06:34 ALT 10 U/L (0-33) 01/08/24 06:34 Alkaline Phosphatase 87 U/L (35-105) 01/08/24 06:34 Total Protein 7.2 g/dL (6.6-8.7) 01/08/24 06:34 Albumin 4.5 g/dL (3.5-5.2) 01/08/24 06:34 Globulin 2.7 g/dL (1.3-4.6) 01/08/24 06:34 TSH 2.63 uIU/mL (0.27-4.20) 01/08/24 06:34 HCG, Qual Negative (Negative) 01/08/24 06:34 Urine Color Colorless (Yellow) 01/08/24 07:57 Urine Appearance Clear (CLEAR) 01/08/24 07:57 Urine pH 5 (5-7) 01/08/24 07:57 Ur Specific [place] 1.005 (1.005-1.030) 01/08/24 07:57 Urine Protein Neg (Negative) 01/08/24 07:57 Urine Glucose (UA) Norm (Normal) 01/08/24 07:57 Urine Ketones Negative (Negative) 01/08/24 07:57 Urine Blood Neg (Negative) 01/08/24 07:57 Urine Nitrate Negative (Negative) 01/08/24 07:57 Urine Bilirubin Neg (Negative) 01/08/24 07:57 Urine Urobilinogen Norm mg/dL (Negative) 01/08/24 07:57 Ur Leukocyte Esterase Negative (Negative) 01/08/24 07:57 All radiology interpretation(s) finalized by discharge Discharge Plan Discharge Patient Disposition: Home Clinical Impression: Heart palpitations Condition: Stable Prescriptions: No Action acetaminophen 325 mg capsule 325 mg PO Q4H PRN (Reason: fever or pain) Qty: 60 0RF Discharge Orders: Discharge ED (Routine); Ordered 01/08/24 Ordered By: Renny Cartagena Referrals: Jean Soto MD [Primary Care Provider] - Discharge Diet: Usual diet Discharge Activity: Resume usual activity Patient Instructions: Opioid Safety, Pain Management Activity Restrictions/Additional Instructions: Thank you for choosing [facility] for your healthcare needs today. Please realize this is an emergency room and that we are providing you with a medical screening exam and this may not be complete and all inclusive of all the testing and or work up that you may need to determine your ailment or severity of your illness. It is very important that you follow up as instructed or that you return to the Emergency Department should you have concerns or if your condition changes or worsens in any way. You were seen today for complaints of palpitations. Given your description of them and the history reported previously suspect these are PVCs or PACs. Your laboratory tests were unremarkable. Case management make arrangements for you to have a 48-hour Holter monitor follow-up with the results with Dr. Soto Coding Level of Care Code ED Medical Assistant Float for Catrachito Devries
[2024-01-08 07:00] LABS: Basophils # 0.1 10^3/uL (0.0-0.1); Basophils % 1.3 %; Eosinophils # 0.2 10^3/uL (0.0-0.8); Eosinophils % 3.1 %; Hematocrit 44.2 % (36-47); Lymphocytes # 2.4 10^3/uL (0.8-4.8); Mean Corpuscular HGB Conc 33.5 g/dL (30-55); Mean Corpuscular Hemoglobin 28.8 pg (27-33); Mean Platelet Volume 10.6 fL (7.4-10.4); Monocytes # 0.4 10^3/uL (0.2-0.9); Monocytes % 5.2 %; Neutrophils # 3.98 10^3/uL (1.8-7.7); Neutrophils % 56.3 %; Nucleated Red Blood Cells % 0 %; Platelet Count 239 10^3/cmm (157-399); Red Blood Count 5.14 10^6/uL (3.85-5.65); Red Cell Distribution Width 12.6 % (12.1-15.1); White Blood Count 7.08 10^3/uL (3.29-11.43)
[2024-01-08 07:10] LABS: HCG, Serum Qual Negative (Negative)
[2024-01-08 07:25] LABS: Alanine Aminotransferase 10 U/L (0-33); Albumin Level 4.5 g/dL (3.5-5.2); Alkaline Phosphatase 87 U/L (35-105); Anion Gap 11.9 (5-19); Aspartate Amino Transferase 13 U/L (0-32); Blood Urea Nitrogen 12 mg/dL (6-20); Calcium 9.3 mg/dL (8.5-10.5); Carbon Dioxide 25 mmol/L (22-29); Chloride 104 mmol/L (98-107); Creatinine Clr Calc Pharmacy 89.5374; Globulin 2.7 g/dL (1.3-4.6); Glomerular Filtration Rate 79.9 mL/min (90-130); Glucose 92 mg/dL (65-115); Magnesium 1.8 mg/dL (1.7-2.3); Osmolality Calculated 283 mOsm/kg (285-295); Potassium 3.9 mmol/L (3.5-5.1); Sodium 137 mmol/L (136-145); Thyroid Stimulating Hormone 2.63 uIU/mL (0.27-4.20); Total Bilirubin 0.2 mg/dL (0.15-1.2); Total Protein 7.2 g/dL (6.6-8.7)
--- NOTE | 2024-01-08 07:31 | ECG_ITS ---
[facility] Test Date: 2024-01-08 Pat Name: Meghan Cowart Department: Room: Gender: Female [employer]: : 1985 Requested By: Renny Freitas Order Number: [id number] Jeremy MD: Mannie Nick M.D. Measurements Intervals [place] Rate: 79 P: 31 CO: 134 QRS: 89 QRSD: 80 T: 70 QT: 372 QTc: 426 Interpretive Statements SINUS RHYTHM No previous ECG available for comparison Electronically Signed On 01-08-2024 9:19:00 CDT by Mannie Nick M.D. [id number]
[2024-01-08 08:07] LABS: Add Urine Microscopic? NO; Charge for UA Resulting for Rev
[2024-01-08 08:18] LABS: Urine Appearance Clear (CLEAR); Urine Color Colorless (Yellow)
[2024-01-08 08:19] LABS: Bilirubin Urine Neg (Negative); Blood Urine Neg (Negative); Glucose Urine UA Norm (Normal); Ketones Urine Negative (Negative); Leukocyte Esterase Urine Negative (Negative); Nitrate Urine Negative (Negative); Protein Urine Neg (Negative); Specific Gravity, Urine 1.005 (1.005-1.030); Urobilinogen Urine Norm (Negative); pH Urine 5 (5-7)
[2024-01-08 08:30] VITALS: BP 108/59; PULSE 50; RESP 22; O2SAT 96
== END 2024-01-08 09:40 | disposition home or self-care (01) ==
PROVIDERS: Emergency Provider Family Medicine; PCP Family Medicine
DX: R00.2 Palpitations (principal)
CPT/HCPCS: 71045; 80053; 81003; 83735; 84443; 84703; 85025; 93005; 99285

== ENCOUNTER → 2024-08-01 15:38 | Outpatient (BNVA) | payer BC, SELFPAY | PROVIDERS: PCP Family Medicine; Visit Provider Nurse Practitioner Women's Health | DX: Z12.4 Encounter for screening for malignant neoplasm of cervix (principal) | CPT/HCPCS: 87624 ==